=== PATIENT | female | born 1985 | race Asian ===

== ENCOUNTER 2017-02-25 18:00 | Emergency (ER) | payer OTHER ==
[~2017-02-25] VITALS: Ht 177.8 cm; Wt 110.0 kg
[2017-02-25 19:00] LABS: HEMATOCRIT 40.8 % (34.6-47.8); HEMOGLOBIN 13.6 g/dL (11.7-16.4); WHITE BLOOD COUNT 9.6 x10^3/uL (3.4-10)
[2017-02-25 19:07] LABS: BLOOD UREA NITROGEN 8 mg/dL (7-18)
[2017-02-25 19:11] LABS: IS PT STATUS REG ER OR PRE ER? YES
[2017-02-25 20:00] VITALS: BP 141/86
== END 2017-02-25 20:02 | disposition home or self-care (01) ==
LOC: ED 18:25
DX: R42 Dizziness and giddiness (principal); R00.2 Palpitations
CPT/HCPCS: 36415; 71010; 80048; 82040; 83735; 84484; 85025; 93005; 99285